=== PATIENT | female | born 1960 | race Two or more races ===

== ENCOUNTER 2021-05-18 02:32 | Emergency (ER) | payer MEDICARE, MEDICAID ==
[~2021-05-18] VITALS: Ht 162.6 cm; Wt 59.0 kg
[2021-05-18 02:34] VITALS: BP 114/62
== END 2021-05-18 02:43 | disposition left against medical advice (07) ==
LOC: ER 02:32
DX: R06.02 Shortness of breath (principal); J44.9 Chronic obstructive pulmonary disease, unspecified; Z53.21 Procedure and treatment not carried out due to patient leaving prior to being seen by health care provider